=== PATIENT | female | born 1965 | race Caucasian/White ===

== ENCOUNTER 2016-08-26 17:38 | Emergency (ER) | payer OTHER ==
--- NOTE | 2016-08-26 18:07 | PDOC ---
History of Present Illness - General Chief Complaint: Laceration Stated Complaint: LACERATION TO RIGHT PINKY Time Seen by Provider: 08/26/16 17:41 History Source: Patient Exam Limitations: No Limitations - History of Present Illness Initial Comments: 50 yo F presents with R 5th finger laceration that she sustained this morning from a broken piece of porcelain. She kept the wound dressed all day, but it kept opening and bleeding, so she presents for evaluation. No other injuries. No shards at the time, just a sharp edge of the porcelain. Denies redness, swelling. +Mild pain. She lacerated the pad of her 5th finger. Past History - Past Medical History Allergies/Adverse Reactions: Allergies Allergy/AdvReac Type Severity Reaction Status Date / Time aspirin AdvReac Mild Verified 08/26/16 17:54 Home Medications: Ambulatory Orders Citalopram Hydrobromide [Celexa -] 20 mg PO DAILY 08/26/16 Omeprazole 20 mg PO AC 08/26/16 Sucralfate [Carafate -] 1 gm PO TID 08/26/16 GI Disorders: Yes - Psycho/Social/Smoking Cessation Hx Anxiety: Yes Suicidal Ideation: No Smoking History: Never smoked Hx Alcohol Use: Yes (RARE) Drug/Substance Use Hx: No Substance Use Type: None Review of Systems - Review of Systems Able to Perform ROS?: Yes Comments:: GENERAL/CONSTITUTIONAL: No fever or chills. No weakness. HEAD, EYES, EARS, NOSE AND THROAT: No change in vision. No ear pain or discharge. No sore throat. MUSCULOSKELETAL: No joint or muscle swelling or pain. No neck or back pain. SKIN: No rash. +Laceration to the R fifth finger. NEUROLOGIC: No headache, vertigo, loss of consciousness, or change in strength/ sensation. HEMATOLOGIC/LYMPHATIC: No anemia, easy bleeding, or history of blood clots. ALLERGIC/IMMUNOLOGIC: No hives or skin allergy. *Physical Exam - Vital Signs Last Vital Signs Temp Pulse Resp BP Pulse Ox 97.1 F L 76 15 112/67 99 08/26/16 17:39 08/26/16 17:39 08/26/16 17:39 08/26/16 17:39 08/26/16 17:39 - Physical Exam Comments: GENERAL: Awake, alert, and fully oriented, in no acute distress HEAD: No signs of trauma EXTREMITIES: Normal range of motion, no edema. No clubbing or cyanosis. No cords, erythema, or tenderness NEUROLOGICAL: Cranial nerves II through XII grossly intact. Normal speech, normal gait SKIN: Warm, Dry, normal turgor, no rashes. +Small 1cm lac to pad of R 5th finger , no active bleeding. Lac has a flap shape, extends into subcutaneous tissue. No signs of cellulitis. Procedures - Laceration/Wound Repair Right Finger 5th digit Wound Length: to 2.5 cm Wound Explored: clean, no foreign body present Wound's Depth, Shape: superficial, flap, contused tissue Irrigated w/ Saline: Yes Anesthesia: 1% Lidocaine Amount of Anesthetic (ccs): 1 Wound Repaired With: Sutures Suture Size/Type: 5:0 Number of Sutures: 2 Sterile Dressing Applied: Yes Progress: 08/26/16 18:36 +Hemostasis. Patient tolerated well. *DC/Admit/Observation/Transfer Diagnosis at time of Disposition: Laceration of finger Qualifiers: Encounter type: initial encounter Finger: little finger Damage to nail status: without damage Foreign body presence: without foreign body Laterality: right Qualified Code(s): S61.216A - Laceration without foreign body of right little finger without damage to nail, initial encounter - Discharge Dispostion Disposition: HOME Condition at time of disposition: Stable Admit: No - Patient Instructions Printed Discharge Instructions: DI for Laceration Repair, DI for Laceration Repair -- Finger Additional Instructions: KEEP YOUR WOUND DRY FOR 48 HOURS. RETURN TO THE ER BETWEEN SEPTEMBER 04- TO HAVE THE SUTURES REMOVED. IF YOU HAVE SEVERE PAIN, REDNESS SPREADING UP YOUR ARM, DRAINAGE OF PUS, OR ANY OTHER CONCERNING SYMPTOMS, RETURN TO THE ER IMMEDIATELY. DO NOT APPLY ANY LOTIONS, CREAMS, OR SOAPS. KEEP COVERED WITH GAUZE OR ALLOW IT TO AIR OUT. DO NOT USE BANDAIDS, IT WILL GET TOO MOIST UNDERNEATH.
[2016-08-26 18:14] VITALS: BP 112/67; PULSE 76; TEMP 97.1; BMI 956.8
[2016-08-26] MEDS ORDERED: DIPHTH,PERTUSS(ACELL),TET VAC 0.5 ML VIAL IM ONE (18:37)
== END 2016-08-26 18:48 | disposition home or self-care (01) ==
LOC: FER 17:38
PROC: 3E0234Z Introduction of Serum, Toxoid and Vaccine into Muscle, Percutaneous Approach (ICD-10-PCS; principal; 2016-08-26)
PROC: 0HQFXZZ Repair Right Hand Skin, External Approach (ICD-10-PCS; 2016-08-26)
DX: S61.216A Laceration without foreign body of right little finger without damage to nail, initial encounter (principal); W25.XXXA Contact with sharp glass, initial encounter; Y93.89 Activity, other specified; Y92.9 Unspecified place or not applicable; F41.9 Anxiety disorder, unspecified; K92.9 Disease of digestive system, unspecified
CPT/HCPCS: 99282-25